=== PATIENT | male | born 1980 | race Two or more races ===

== ENCOUNTER 2022-06-20 23:42 | Emergency (ER) | payer OTHER ==
[~2022-06-20] VITALS: Ht 175.3 cm; Wt 74.8 kg
[2022-06-20 23:49] VITALS: BP 132/74
[2022-06-21 01:09] LABS: APPEARANCE,URINE CLEAR (CLEAR); BILIRUBIN,URINE NEGATIVE (NEGATIVE); COLOR,URINE YELLOW (YELLOW); GLUCOSE, URINE (UA) NEGATIVE (NEGATIVE); KETONES,URINE 5 mg/dL (NEGATIVE); LEUKOCYTE ESTERASE ,URINE NEGATIVE (NEGATIVE); NITRATE,URINE NEGATIVE (NEGATIVE); OCCULT BLOOD,URINE NEGATIVE (NEGATIVE); PH,URINE 5.5 (5.0-8.0); PROTEIN,URINE NEGATIVE (NEGATIVE); UROBILINOGEN,URINE 0.2 mg/dL (0.2-1.0)
== END 2022-06-21 01:30 | disposition home or self-care (01) ==
LOC: EDH 23:42
DX: Z76.0 Encounter for issue of repeat prescription (principal); Z59.00 Homelessness unspecified; F32.A Depression, unspecified
CPT/HCPCS: 81003